=== PATIENT | female | born 1985 | race Two or more races ===

== ENCOUNTER 2018-03-14 08:53 | Outpatient (CLI) | payer OTHER | END 2018-03-14 10:35 | disposition home or self-care (01) | LOC: LAB 08:53 | DX: Z34.92 Encounter for supervision of normal pregnancy, unspecified, second trimester (principal) ==

== ENCOUNTER 2018-06-24 09:49 | Outpatient (CLI) | payer OTHER | END 2018-06-24 11:40 | disposition home or self-care (01) | LOC: NST 09:49 | DX: Z34.82 Encounter for supervision of other normal pregnancy, second trimester (principal) ==

== ENCOUNTER 2018-06-28 09:53 | Outpatient (CLI) | payer OTHER | END 2018-06-28 12:26 | disposition home or self-care (01) | LOC: NST 09:53 | DX: Z34.83 Encounter for supervision of other normal pregnancy, third trimester (principal) ==

== ENCOUNTER 2018-07-07 13:42 | Outpatient (CLI) | payer OTHER ==
[2018-07-07] MEDS ORDERED: DICLEGIS DR 101 EACH PO (19:47)
[2018-07-07] MEDS ORDERED: INTEGRA PLUS C1 EACH PO (19:48)
[2018-07-07] MEDS ORDERED: OBSTETRIX ONE1 EACH PO (19:49)
[2018-07-07] MEDS ORDERED: NIFE60TA3 PO (19:49)
== END 2018-07-07 14:49 | disposition home or self-care (01) ==
LOC: NST 13:42
DX: Z34.83 Encounter for supervision of other normal pregnancy, third trimester (principal)

== ENCOUNTER 2018-07-07 16:39 | Inpatient (IN) | payer OTHER ==
[~2018-07-07] VITALS: Ht 160 cm; Wt 54.9 kg
[2018-07-07] MEDS ORDERED: DICLEGIS DR 101 EACH PO (19:47)
[2018-07-07] MEDS ORDERED: INTEGRA PLUS C1 EACH PO (19:48)
[2018-07-07] MEDS ORDERED: NIFE60TA3 PO (19:49)
[2018-07-07] MEDS ORDERED: OBSTETRIX ONE1 EACH PO (19:49)
== END 2018-07-09 12:56 | disposition home or self-care (01) | DRG 778 ==
LOC: LDR 16:39 → SURG-SUITE 16:39
PROC: 4A1HXCZ Monitoring of Products of Conception, Cardiac Rate, External Approach (ICD-10-PCS; principal; 2018-07-07)
DX: O60.03 Preterm labor without delivery, third trimester (principal)

== ENCOUNTER 2018-08-01 08:19 | Inpatient (IN) | payer OTHER ==
[~2018-08-01] VITALS: Ht 160 cm; Wt 124.0 kg
[~2018-08-01 08:19] MED LIST: DICLEGIS DR 101 EACH PO; INTEGRA PLUS C1 EACH PO; NIFE60TA3 PO; OBSTETRIX ONE1 EACH PO
== END 2018-08-03 11:23 | disposition home or self-care (01) | DRG 768 ==
LOC: LDR 08:19 → OB/GYN 08:19
PROC: 10E0XZZ Delivery of Products of Conception, External Approach (ICD-10-PCS; principal; 2018-08-01)
PROC: 0DQR0ZZ Repair Anal Sphincter, Open Approach (ICD-10-PCS; 2018-08-01)
PROC: 0W8NXZZ Division of Female Perineum, External Approach (ICD-10-PCS; 2018-08-01)
PROC: 4A1HXCZ Monitoring of Products of Conception, Cardiac Rate, External Approach (ICD-10-PCS; 2018-08-01)
PROC: 4A033R1 Measurement of Arterial Saturation, Peripheral, Percutaneous Approach (ICD-10-PCS; 2018-08-01)
DX: O70.20 Third degree perineal laceration during delivery, unspecified (principal); Z37.0 Single live birth; Z3A.37 37 weeks gestation of pregnancy